=== PATIENT | female | born 1990 | race African-American/Black ===

== ENCOUNTER 2021-09-26 13:55 | Emergency (ER) | payer SELFPAY ==
[2021-09-26] MEDS ORDERED: Ondansetron 4 MG/2 ML SDV IVPUSH ONE (15:01)
[2021-09-26] MEDS ORDERED: Sodium Chloride 0.9% 1,000 ML IV STA (15:01)
[2021-09-26] MEDS ORDERED: HYDROmorphone 0.5 MG/0.5 ML Syringe IVPUSH ONE (15:01)
[2021-09-26] MEDS: Sodium Chloride 0.9% 10 ML Syringe FLUSH PRN ×2 (15:23→16:37)
[2021-09-26] MEDS ORDERED: Sodium Chloride 0.9% 10 ML Syringe FLUSH ONE (16:19)
[2021-09-26] MEDS ORDERED: Iopamidol 612 MG/ML 100 ML Bottle IVPUSH ONE (16:19)
[2021-09-26] MEDS ORDERED: Sodium Chloride 0.9% 100 ML IV SCH (16:30)
== END 2021-09-26 18:56 | disposition home or self-care (01) ==
LOC: JD.ED 13:55
DX: R10.31 Right lower quadrant pain (principal)
CPT/HCPCS: 36415; 74177; 80053; 81001; 84703; 85025; 86140; 96374; 96375; 99284; J1170; J2405; J3490; J7030; Q9967; 99285

== ENCOUNTER 2022-02-10 10:38 | Emergency (ER) | payer MEDICAID ==
[2022-02-10] MEDS ORDERED: Sodium Chloride 0.9% 10 ML Syringe FLUSH PRN (11:10)
[2022-02-10] MEDS ORDERED: Ondansetron 4 MG/2 ML SDV IVPUSH ONE (11:41)
[2022-02-10] MEDS ORDERED: HYDROmorphone 0.5 MG/0.5 ML Syringe IVPUSH ONE (11:41)
[2022-02-10] MEDS ORDERED: Sodium Chloride 0.9% 1,000 ML IV STA (11:41)
[2022-02-10 13:15] LABS: ESTIMATED GFR 78 mL/min (>60)
== END 2022-02-10 16:24 | disposition home or self-care (01) ==
LOC: JD.ED 10:38
DX: R10.31 Right lower quadrant pain (principal)
CPT/HCPCS: 36415; 76830; 80053; 81001; 81025; 83690; 85025; 86140; 96361; 96374; 96375; 99284; J1170; J2405; J3490; J7030

== ENCOUNTER 2023-07-01 10:05 | Emergency (ER) | payer MEDICAID, OTHER ==
[2023-07-01] MEDS ORDERED: Sodium Chloride 0.9% 1,000 ML IV STA (10:38)
[2023-07-01] MEDS ORDERED: Ondansetron 4 MG/2 ML SDV IVPUSH ONE (10:38)
[2023-07-01] MEDS ORDERED: Sodium Chloride 0.9% 10 ML Syringe FLUSH PRN (10:38)
[2023-07-01] MEDS ORDERED: HYDROmorphone 0.5 MG/0.5 ML Syringe IVPUSH ONE ×2 (10:39→14:17)
[2023-07-01 11:24] LABS: BASOPHILS PERCENT AUTO 0.4 % (0.0-1.0); EOSINOPHILS ABSOLUTE AUTO 0.1 K/mm3 (0.0-0.4); EOSINOPHILS PERCENT AUTO 2.4 % (0.0-6.0); HEMATOCRIT 40.2 % (37.0-47.0); HEMOGLOBIN 13.9 gm/dl (12.0-16.0); IMMATURE GRAN ABSOLUTE AUTO 0.02 K/mm3 (0.00-0.05); IMMATURE GRAN PERCENT AUTO 0.4 % (0.0-0.4); LYMPHOCYTES ABSOLUTE AUTO 2.7 K/mm3 (1.0-4.8); MEAN CORPUSCULAR HGB CONC 34.6 g/dl (32.0-36.0); MEAN CORPUSCULAR VOLUME 89.7 fl (83.0-99.0); MEAN PLATELET VOLUME 11.8 fl (9.4-12.3); MONOCYTES ABSOLUTE AUTO 0.4 K/mm3 (0.0-0.8); MONOCYTES PERCENT AUTO 7.7 % (0.0-8.0); NEUTROPHILS ABSOLUTE AUTO 1.8 K/mm3 (1.8-7.7); NEUTROPHILS PERCENT AUTO 35.1 % (41.0-71.0); PLATELET COUNT,PLT 172 K/mm3 (150-400); RED BLOOD CELL COUNT 4.48 M/mm3 (4.10-5.30); WHITE BLOOD CELL COUNT,WBC 5.04 K/mm3 (3.9-11.3)
[2023-07-01] MEDS ORDERED: Sodium Chloride 0.9% 10 ML Syringe FLUSH ONE (11:39)
[2023-07-01] MEDS ORDERED: Iopamidol 612 MG/ML 100 ML Bottle IVPUSH ONE (11:39)
[2023-07-01 11:44] LABS: ALBUMIN 3.9 g/dl (3.4-5.0); ANION GAP 9.9 (5-15); BILIRUBIN TOTAL 0.6 mg/dL (0.2-1.0); BUN/CREATININE RATIO 6.7 (14-18); CALCIUM 8.9 mg/dL (8.5-10.1); CREATININE 0.9 mg/dL (0.55-1.02); EST CRCL DRUG DOSING (CG) 74.92 mL/min; POTASSIUM,K 3.9 mEq/L (3.5-5.1); PROTEIN TOTAL,TP 7.9 g/dl (6.4-8.2)
[2023-07-01 13:34] LABS: APPEARANCE,URINE SLT CLOUDY (Clear); BILIRUBIN,URINE NEGATIVE (Negative); COLOR,URINE YELLOW (Yellow); GLUCOSE,URINE NEGATIVE (Negative); KETONES,URINE NEGATIVE (Negative); LEUKOCYTE ESTERASE,URINE NEGATIVE (Negative); NITRITE,URINE NEGATIVE (Negative); OCCULT BLOOD,URINE NEGATIVE (Negative); PROTEIN,URINE NEGATIVE (Negative); UROBILINOGEN,URINE 0.2 (0.2-1.0)
[2023-07-01 13:57] LABS: RBC,URINE 0-5 /hpf (0-5); WBC,URINE 0-5 /hpf (0-5)
[2023-07-01 13:58] LABS: BACTERIA,URINE FEW /hpf (FEW); MUCUS,URINE FEW /hpf (FEW)
== END 2023-07-01 14:56 | disposition home or self-care (01) ==
LOC: JD.ED 10:05
DX: R10.31 Right lower quadrant pain (principal); R11.2 Nausea with vomiting, unspecified; Z86.16 Personal history of COVID-19
CPT/HCPCS: 36415; 74177; 80053; 81001; 83690; 84703; 85025; 96361; 96374; 96375; 96376; 99284; J1170; J2405; J3490; J7030; Q9967